=== PATIENT | female | born 1985 ===

== ENCOUNTER 2024-04-13 22:27 | Emergency (ER) | payer MEDICAID ==
[~2024-04-13] VITALS: Ht 165.1 cm; Wt 99.8 kg
[2024-04-13] MEDS ORDERED: Trimethoprim/Sulfamethoxazole DS Tab PO ONE (22:55)
[2024-04-13] MEDS ORDERED: CeFAZolin Sodium 2,000 MG in NS 50 ML IV ONE (22:55)
[2024-04-13] MEDS ORDERED: Bactrim Ds Tab1 EACH PO (22:56)
[2024-04-13] MEDS ORDERED: CEPH500 PO (22:56)
[2024-04-13] MEDS ORDERED: Ketorolac Tromethamine 30mg Vial IV ONE (23:00)
[2024-04-13] MEDS ORDERED: Acetaminophen 325 MG TABLET PO ONE (23:00)
[2024-04-13] MEDS ORDERED: Promethazine HCl 25 MG Tab PO ONE (23:15)
== END 2024-04-14 00:06 | disposition home or self-care (01) ==
LOC: ER 22:27
DX: L03.116 Cellulitis of left lower limb (principal)
CPT/HCPCS: 96365; 96375; 99283-25; A9270; J0690; J1885